=== PATIENT | female | born 1940 | race Caucasian/White ===

== ENCOUNTER 2021-12-03 11:46 | Emergency (ER) | payer MEDICARE, SELFPAY ==
--- NOTE | 2021-12-04 21:40 | ED_ITS ---
HPI - General Adult General Chief complaint: Unspecified Stated complaint: Blood in Stool History of Present Illness HPI narrative: 12/03/2021 1155 Patient and arrive at [facility] and signed in with diagnosis of chest pain and shortness of breath. I went to check patient to see if she was having acute chest pain and stated no she wasn't. said that patient was having GI bleeding last week and she is still having a little spotting, Patient went to therapy today and became dizzy. Therapy called Dr Bruno office and was told to either go to [facility] or ER for further evaluation and lab work. I informed that we dont do labs here but will see and evaluate patient and transfer to ED. Patient and spouse said they wanted to just go straight to ED. Course Course Level of Care: [facility] Visit Discharge Plan Discharge Patient Disposition: Left Without Being Seen Follow-up/Referrals: Kiana,Delbert Bush MD [Primary Care Provider] - Time of Disposition: 11:57
== END 2021-12-03 11:57 | disposition left against medical advice (07) ==
LOC: EXPBETH 11:52
PROVIDERS: Emergency Provider Registered Nurse; PCP Internal Medicine
DX: Z53.21 Procedure and treatment not carried out due to patient leaving prior to being seen by health care provider (principal)
CPT/HCPCS: 99199